=== PATIENT | female | born 1980 | race Caucasian/White ===

== ENCOUNTER 2023-07-24 10:44 | Day surgery (SDC) | payer BC ==
[~2023-07-24 10:44] MED LIST: Albuterol 0.083% 2.5 MG/3 ML Neb Soln NEB PRN; HYDROmorphone 1 MG/ML Syringe IVPUSH PRN; Metoclopramide 10 MG/2 ML SDV IVPUSH PRN; Morphine 2 MG/ML SYRINGE IVPUSH PRN; Naloxone 0.4 MG/ML SDV IVPUSH PRN; Ondansetron 4 MG/2 ML SDV IVPUSH PRN; ceFAZolin 2 GM in Sodium Chloride 0.9% 50 ML IV ONE; droPERidol 5 MG/2 ML SDV IVPUSH PRN; fentaNYL 50 MCG/ML SDV IVPUSH PRN
[2023-07-24] MEDS: Lactated Ringers 1,000 ML IV SCH (12:15)
[2023-07-24] MEDS ORDERED: Bupivacaine 0.5% 30 ML SDV ONE (12:31)
[2023-07-24] MEDS ORDERED: Lidocaine 2% 5 ML SDV ONE (12:34)
[2023-07-24] MEDS ORDERED: Midazolam 1 MG/ML 2 ML SDV ONE (12:50)
[2023-07-24] MEDS ORDERED: Bupivacaine 0.5%/EPINEPHrine 1:200,000 30 ML SDV ONE (13:22)
[2023-07-24] MEDS ORDERED: propofoL 50 ML ONE ×2 (13:41→14:09)
[2023-07-24] MEDS ORDERED: ceFAZolin 2 GM Vial ONE (14:06)
[2023-07-24] MEDS ORDERED: fentaNYL 100 MCG/2 ML SDV ONE (14:13)
[2023-07-24] MEDS ORDERED: Ondansetron 4 MG/2 ML SDV ONE (14:21)
[2023-07-24] MEDS ORDERED: Dexamethasone 4 MG/ML 5 ML MDV ONE (14:21)
[2023-07-24] MEDS ORDERED: Ketorolac 30 MG/ML SDV ONE (14:21)
[2023-07-24] MEDS ORDERED: Propofol 200 MG/20 ML SDV ONE (15:01)
== END 2023-07-24 17:15 | disposition home or self-care (01) ==
LOC: MW.SDS 10:44
PROVIDERS: ATTEND Orthopaedic Surgery
DX: S52.602A Unspecified fracture of lower end of left ulna, initial encounter for closed fracture (principal); Z88.5 Allergy status to narcotic agent; Z98.84 Bariatric surgery status; Z87.891 Personal history of nicotine dependence; W19.XXXA Unspecified fall, initial encounter
CPT/HCPCS: 25652; 81025; J0131; J0665; J0690; J1100; J1885; J2405; J2704; J3010; J7120; C1713; C1776; J2250; J3490